=== PATIENT | female | born 1975 | race Two or more races ===

== ENCOUNTER 2017-04-02 14:51 | Emergency (ER) | payer MEDICAID ==
[2017-04-02 15:01] VITALS: RESP 16; O2SAT 97
--- NOTE | 2017-04-02 15:59 | EDPHY ---
HPI/HX/ROS/PE/MDM Narrative: CHIEF COMPLAINT: Right knee pain HISTORY OF PRESENT ILLNESS: The patient is a 42 y/o female with a history of a right ACL repair, complaining of right knee pain for several weeks. She was walking when her right knee gave out and she fell; she did not hit her knee on impact. The knee felt like it was slipping out of place to the outside. Denies taking pain medication. Has had a previous ACL repair. She is also complaining of a green colored vaginal discharge. Last intercourse was 1 month ago, unprotected. It is now painful with urination. Denies itching. No fever, chills, chest pain, shortness of breath, palpitations, vomiting, diarrhea, headache, lightheadedness. REVIEW OF SYSTEMS: Aside from elements discussed in the HPI, a comprehensive 10-point review of systems was reviewed and is negative. PAST MEDICAL HISTORY: Heroin abuse, right ACL repair (2007) SOCIAL HISTORY: Living in a custodial house in [facility] VITAL SIGNS: Reviewed by me GENERAL: Well-developed, well-nourished, resting comfortably in no respiratory distress. HEENT: Benign. LUNGS: Clear to auscultation bilaterally, no wheezes, rhonchi or rales. CARDIAC: Regular rate and rhythm, no rubs, murmurs or gallops. ABDOMEN: Soft, nontender, nondistended, bowel sounds normal. Nn adnexal or suprapubic pain. BACK: No CVA tenderness. EXTREMITIES: Right knee: Grossly unstable. Positive anterior drawer, positive Harry's. No medial or lateral laxity. Distal neurovascularly intact. NEURO: Alert and oriented, grossly nonfocal. SKIN: Warm and dry, no rash. PSYCHIATRIC: Normal mentation, no agitation. Portions of this note were transcribed by a medical staff assistant. I personally performed a history, physical exam, medical decision making, and confirmed accuracy of information the transcribed note. ED Course: The patient is a 42 y/o female with a history of a right ACL repair presenting with right knee pain. On exam she has a positive anterior drawer and positive Harry's to her right knee. She is also complaining of green vaginal discharge. UA and labs ordered. 1gm PO azithromycin, 250mg IM Rocephin, and 30mg IM Toradol administered. First urine obtained was dirty urine for GC/Chylmdia. Clean catch urine also sent for culture. 1642: Consulted with Dr. Reyes, orthopedic surgeon, regarding this patient. Asked to refer patient back to Dr Delarosa, but will be happy to see patient in his office if unable to see Dr Marrero again. Placed in knee immobilizer. Understand that she will need close followup and presumably surgical repair at some point. Treated for STIs and given Metronidazole for BV/trich. Also referred her to an orthopedic follow up. Return precautions provided; patient is comfortable with this plan. MDM: Diff dx of knee pain considered including strain, sprain, internal derangement, instability, effusion, infection, contusion. Diff dx of complaints of dysuria and vaginal discharge considered including BV, trich, STIs, UTI. - Data Points Medications Given: Discontinued Medications Azithromycin (Zithromax) 1,000 mg PO EDNOW ONE PRN Reason: Protocol Stop: 04/02/17 16:18 Last Admin: 04/02/17 16:40 Dose: 1,000 mg Ceftriaxone Sodium (Rocephin Im Syringe) 250 mg IM ONCE ONE PRN Reason: Protocol Stop: 04/02/17 16:18 Last Admin: 04/02/17 18:18 Dose: 250 mg Ketorolac Tromethamine (Toradol) 30 mg IM EDNOW ONE Stop: 04/02/17 16:18 Last Admin: 04/02/17 16:45 Dose: 30 mg Microbiology Results: MICROBIOLOGY 04/02/17 17:08 Urine,Clean Catch Urine Culture - Final Strep Agalactiae Group B Three [place] Types General Time Seen by Provider: 04/02/17 15:16 Initial Vital Signs: Initial Vital Signs Temperature (C) 36.7 C 04/02/17 14:55 Heart Rate 97 04/02/17 14:55 Respiratory Rate 16 04/02/17 14:55 Blood Pressure 131/94 H 04/02/17 14:55 O2 Sat (%) 97 04/02/17 14:55 O2 Delivery Mode Room Air Allergies/Adverse Reactions: acetaminophen [From Vicodin] Allergy (Intermediate, Verified 04/02/17 14:56) Rash aspirin Allergy (Mild, Verified 04/02/17 14:56) GI hydrocodone bitartrate [From Vicodin] Allergy (Verified 04/02/17 14:55) Home Medications: Medication Instructions Recorded Carvedilol [Coreg (*)] 6.25 mg PO BIDMEAL 04/02/17 DULoxetine [Cymbalta 30 MG (*)] 30 mg PO 04/02/17 Furosemide [Lasix 20 MG (*)] 20 mg PO 04/02/17 Lisinopril [Zestril 20 mg (*)] 20 mg PO 04/02/17 metroNIDAZOLE [Metronidazole] 500 mg PO BID 7 Days #14 tablet 04/02/17 Departure - Departure Disposition: Home, Routine, Self-Care Clinical Impression: STI (sexually transmitted infection) Right knee sprain Qualifiers: Encounter type: initial encounter Involved ligament of knee: anterior cruciate ligament Qualified Code(s): S83.511A - Sprain of anterior cruciate ligament of right knee, initial encounter Right knee pain Qualifiers: Chronicity: acute Qualified Code(s): M25.561 - Pain in right knee Condition: Good Instructions: Sexually Transmitted Diseases (ED), Knee Sprain (ED), Knee Pain ( ED), Knee Immobilizer (ED) Additional Instructions: Take Metronidazole as prescribed. Wear your knee immobilizer until follow up with an orthopedic surgeon. Follow up with Dr. Marrero in the next week. If you are unable to see Dr. Marrero, then follow up with Dr. Reyes. You can call the ER in 48 hours to find out the results of your STD tests. Follow-up with your primary doctor within 72 hours for unimproved symptoms. Return to the Emergency Department for fever, chest pain, shortness of breath, increasing pain or other worsening of condition. Referrals: Nick Marrero MD [Medical Doctor] - As per Instructions Yaya Reyes MD [Medical Doctor] - As per Instructions [facility],. [Clinic] - As per Instructions Stand Alone Forms: Work Excuse Prescriptions: metroNIDAZOLE [Metronidazole] 500 mg PO BID 7 Days #14 tablet Report Scribed for: Scarlet Kent Report Scribed by: Dorcas Parkinson Date of Report: 04/02/17 Time of Report: 15:59
[2017-04-02] MEDS ORDERED: KETOROLAC 30 MG/1 ML SDV IM ONE (16:17)
[2017-04-02] MEDS ORDERED: AZITHROMYCIN 250 MG TAB PO ONE (16:17)
[2017-04-02 18:42] VITALS: BP 115/70; PULSE 78; TEMP 98.6
[2017-04-03 14:43] LABS: GC AMPLIFICATION GENPROBE NEGATIVE (NEGATIVE)
== END 2017-04-02 18:42 | disposition home or self-care (01) ==
DX: S83.511A Sprain of anterior cruciate ligament of right knee, initial encounter (principal); A64 Unspecified sexually transmitted disease; W01.0XXA Fall on same level from slipping, tripping and stumbling without subsequent striking against object, initial encounter; Y99.8 Other external cause status; Y93.01 Activity, walking, marching and hiking
CPT/HCPCS: J0696; J1885; L1830